=== PATIENT | female | born 1980 | race Caucasian/White ===

== ENCOUNTER → 2017-05-03 | Outpatient (CLI) | payer OTHER | END | disposition home or self-care (01) | LOC: US 14:00 | PROC: BW4GZZZ Ultrasonography of Pelvic Region (ICD-10-PCS; principal; 2017-05-03) | DX: N92.4 Excessive bleeding in the premenopausal period (principal) ==

== ENCOUNTER → 2018-01-16 | Outpatient (CLI) | payer OTHER | END | disposition home or self-care (01) | LOC: MI 10:46 | PROC: BW30ZZZ Magnetic Resonance Imaging (MRI) of Abdomen (ICD-10-PCS; principal; 2018-01-16) | DX: D17.1 Benign lipomatous neoplasm of skin and subcutaneous tissue of trunk (principal) ==

== ENCOUNTER 2018-12-21 08:57 | Day surgery (SDC) | payer OTHER ==
[2018-12-14 10:57] LABS: BASOPHIL % 0.8 % (0-2); PLATELET COUNT 357 x10^3mcL (130-400); RED CELL DISTRIBUTION WIDTH 13.3 % (11.5-14.5)
[2018-12-14 11:16] LABS: CALCIUM 9.2 mg/dL (8.5-10.1); CARBON DIOXIDE 27.6 mmol/L (21-32); CHLORIDE SERUM 104 mmol/L (98-107); CREATININE SERUM 0.6 mg/dL (0.6-1.0); GFR1 > 60 mL/min; GLUCOSE SERUM 100 mg/dL (74-106); POTASSIUM SERUM 3.9 mmol/L (3.5-5.1); SODIUM SERUM 137 mmol/L (136-145)
[~2018-12-21] VITALS: Ht 160 cm; Wt 83.9 kg
[2018-12-21 09:06] VITALS: BP 120/77
[2018-12-21 13:55] VITALS: BP 122/86
== END 2018-12-21 13:30 | disposition home or self-care (01) ==
LOC: DS 08:57 → OR 11:00 → DS 11:00 → OR 12:00 → DS 13:30
PROVIDERS: Surgery
PROC: 0JB70ZZ Excision of Back Subcutaneous Tissue and Fascia, Open Approach (ICD-10-PCS; 2018-12-21)
PROC: 0JQ70ZZ Repair Back Subcutaneous Tissue and Fascia, Open Approach (ICD-10-PCS; principal; 2018-12-21 11:00)
DX: D17.1 Benign lipomatous neoplasm of skin and subcutaneous tissue of trunk (principal); D64.9 Anemia, unspecified
CPT/HCPCS: J0690; J2250; J2704; J3010; J3490; J7120

== ENCOUNTER → 2019-01-29 | Outpatient (CLI) | payer OTHER | END | disposition home or self-care (01) | LOC: US 10:30 | PROC: BU4CZZZ Ultrasonography of Uterus and Ovaries (ICD-10-PCS; principal; 2019-01-29) | DX: E28.2 Polycystic ovarian syndrome (principal) ==

== ENCOUNTER → 2019-03-07 | Outpatient (CLI) | payer OTHER | END | disposition home or self-care (01) | LOC: US 09:00 | PROC: BH40ZZZ Ultrasonography of Right Breast (ICD-10-PCS; principal; 2019-03-07) | DX: N63.0 Unspecified lump in unspecified breast (principal) | CPT/HCPCS: 76641 ==

== ENCOUNTER → 2019-05-13 | Outpatient (CLI) | payer OTHER ==
[2019-05-13 08:38] LABS: ALBUMIN 3.7 g/dL (3.4-5.0); ALKALINE PHOSPHATASE 63 U/L (46-116); ALT/SGPT 22 U/L (14-59); AST/SGOT 11 U/L (15-37); CALCIUM 8.5 mg/dL (8.5-10.1); CARBON DIOXIDE 22.9 mmol/L (21-32); CHLORIDE SERUM 108 mmol/L (98-107); CHOLESTEROL 195 mg/dL (<200); CHOLESTEROL/HDL RATIO 5.9; CREATININE SERUM 0.9 mg/dL (0.6-1.0); GFR1 > 60 mL/min; GLUCOSE SERUM 99 mg/dL (74-106); HDL CHOLESTEROL 33 mg/dL (40-60); POTASSIUM SERUM 4.2 mmol/L (3.5-5.1); SODIUM SERUM 140 mmol/L (136-145); TOTAL PROTEIN, SERUM 7.3 g/dL (6.4-8.2); TRIGLYCERIDES 137 mg/dL (<150)
== END | disposition home or self-care (01) ==
LOC: LB 07:56
DX: E78.5 Hyperlipidemia, unspecified (principal); R73.03 Prediabetes

== ENCOUNTER → 2019-06-05 | Outpatient (CLI) | payer OTHER | END | disposition home or self-care (01) | LOC: US 09:00 | PROC: BG44ZZZ Ultrasonography of Thyroid Gland (ICD-10-PCS; principal; 2019-06-05) | DX: E04.9 Nontoxic goiter, unspecified (principal) ==